=== PATIENT | male | born 1985 | race Caucasian/White ===

== ENCOUNTER 2016-04-23 13:54 | Emergency (ER) | payer MEDICAID, OTHER ==
[~2016-04-23] VITALS: Ht 170.2 cm; Wt 84.0 kg
[2016-04-23 14:21] VITALS: BP 122/85
[2016-04-23] MEDS ORDERED: KETOROLAC 30MG/ML VIAL IV ONE (15:45)
[2016-04-23] MEDS ORDERED: KETOROLAC 30MG/ML VIAL IM ONE (16:00)
== END 2016-04-23 16:24 | disposition home or self-care (01) ==
LOC: ER 15:57
DX: M54.2 Cervicalgia (principal); M54.5 Low back pain; R03.0 Elevated blood-pressure reading, without diagnosis of hypertension; Y93.89 Activity, other specified; V43.52XA Car driver injured in collision with other type car in traffic accident, initial encounter; Y92.410 Unspecified street and highway as the place of occurrence of the external cause
CPT/HCPCS: 96372; 99283; J1885; Z7610

== ENCOUNTER 2016-06-19 11:07 | Emergency (ER) | payer OTHER | END 2016-06-19 14:50 | disposition left against medical advice (07) | LOC: ER 14:38 | DX: J00 Acute nasopharyngitis [common cold] (principal); Z53.21 Procedure and treatment not carried out due to patient leaving prior to being seen by health care provider ==

== ENCOUNTER 2016-06-19 15:05 | Emergency (ER) | payer OTHER | END 2016-06-19 19:12 | disposition left against medical advice (07) | LOC: ER 15:05 | DX: Z00.00 Encounter for general adult medical examination without abnormal findings (principal); Z53.21 Procedure and treatment not carried out due to patient leaving prior to being seen by health care provider ==

== ENCOUNTER 2018-01-14 09:28 | Emergency (ER) | payer MEDICAID, OTHER ==
[~2018-01-14] VITALS: Ht 167.6 cm; Wt 89.0 kg
[2018-01-14 10:18] VITALS: BP 151/93
[2018-01-14] MEDS ORDERED: TETANUS, DIPHTHERIA, PERTUSSIS VAC/PF 0.5ML (>7YR OLD) IM ONE (12:30)
== END 2018-01-14 12:36 | disposition home or self-care (01) ==
LOC: ER 09:28
DX: S61.210A Laceration without foreign body of right index finger without damage to nail, initial encounter (principal); S31.31XA Laceration without foreign body of scrotum and testes, initial encounter; Z23 Encounter for immunization; W26.8XXA Contact with other sharp object(s), not elsewhere classified, initial encounter; Y93.89 Activity, other specified; Y92.89 Other specified places as the place of occurrence of the external cause; Y99.8 Other external cause status
CPT/HCPCS: 90471; 90715; 99283

== ENCOUNTER 2022-09-15 07:32 | Emergency (ER) | payer MEDICAID ==
[~2022-09-15] VITALS: Ht 170.2 cm; Wt 93.0 kg
[~2022-09-15 07:32] MED LIST: CLOT15CR27 TP
[2022-09-15 07:38] VITALS: BP 152/98; PULSE 71; RESP 16; TEMP 98.6; O2SAT 100
== END 2022-09-15 11:36 | disposition home or self-care (01) ==
LOC: ER 07:32
DX: S71.152D Open bite, left thigh, subsequent encounter (principal); W54.0XXD Bitten by dog, subsequent encounter; Z00.00 Encounter for general adult medical examination without abnormal findings
CPT/HCPCS: 99281

== ENCOUNTER 2024-11-11 20:21 | Emergency (ER) | payer OTHER, MEDICAID ==
[~2024-11-11] VITALS: Ht 170.2 cm; Wt 97.0 kg
[2024-11-11 20:53] VITALS: TEMP 36.9; O2SAT 100
[2024-11-11] MEDS ORDERED: CYCL10TA21 MT (22:07)
[2024-11-11] MEDS ORDERED: NAPR-1176 MT (22:07)
[2024-11-11] MEDS: KETOROLAC 30MG/ML VIAL IM ONE (22:22)
[2024-11-11 22:24] VITALS: BP 164/112; PULSE 70; RESP 18; O2SAT 96
== END 2024-11-11 22:30 | disposition home or self-care (01) ==
LOC: ER 20:21
DX: M54.2 Cervicalgia (principal); M54.50 Low back pain, unspecified; V43.52XA Car driver injured in collision with other type car in traffic accident, initial encounter; Y93.89 Activity, other specified; Y92.89 Other specified places as the place of occurrence of the external cause; Y99.8 Other external cause status
CPT/HCPCS: 99283; 96372; J1885

== ENCOUNTER 2025-01-31 08:01 | Emergency (ER) | payer MEDICAID, OTHER ==
[~2025-01-31] VITALS: Ht 170.2 cm; Wt 95.0 kg
[~2025-01-31 08:01] MED LIST changes: +CYCL10TA21 MT; +NAPR-1176 MT
[2025-01-31 08:13] VITALS: O2SAT 100
[2025-01-31] MEDS ORDERED: TRIMO EACHEYE (09:15)
[2025-01-31 09:25] VITALS: BP 117/79; PULSE 65; RESP 16; TEMP 36.7; O2SAT 100
== END 2025-01-31 09:26 | disposition home or self-care (01) ==
LOC: ER 08:01
DX: H10.9 Unspecified conjunctivitis (principal); H57.11 Ocular pain, right eye
CPT/HCPCS: 99283